=== PATIENT | male | born 1965 | race Caucasian/White ===

== ENCOUNTER 2017-03-13 10:57 | Inpatient (IN) | payer OTHER ==
[~2017-03-13] VITALS: Ht 152.4 cm; Wt 56.2 kg
== END 2017-03-15 13:38 | disposition home or self-care (01) | DRG 314 ==
LOC: ER 10:57 → ICU 15:14 → MED 15:14
PROVIDERS: ADMIT Internal Medicine
DX: I95.89 Other hypotension (principal); N17.0 Acute kidney failure with tubular necrosis; T44.7X5A Adverse effect of beta-adrenoreceptor antagonists, initial encounter; T46.4X5A Adverse effect of angiotensin-converting-enzyme inhibitors, initial encounter; F17.210 Nicotine dependence, cigarettes, uncomplicated; F10.20 Alcohol dependence, uncomplicated; I10 Essential (primary) hypertension; G89.29 Other chronic pain; Z83.3 Family history of diabetes mellitus; D64.9 Anemia, unspecified; Z79.899 Other long term (current) drug therapy
CPT/HCPCS: 36415; 80307; 97161-GP; 97165; G0480; J0696; J1644; J7030; J7070

== ENCOUNTER 2017-03-13 10:57 | Emergency (ER) | payer OTHER | END 2017-03-13 15:13 | disposition critical access hospital (66) | LOC: ER 10:57 | DX: N17.9 Acute kidney failure, unspecified (principal); I95.9 Hypotension, unspecified; F17.210 Nicotine dependence, cigarettes, uncomplicated | CPT/HCPCS: 36415; 80307; 96361; 96365; 96366; 96367; 96375; 96376; G0480; J0696 ==